=== PATIENT | female | born 1930 | race Caucasian/White ===

== ENCOUNTER 2021-08-18 15:26 | Observation (INO) ==
[2021-08-18 16:29] LABS: Basophils % 0.3 %; Eosinophils % 0.1 %; Hematocrit 39.4 % (35.3-44.9); Hemoglobin 12.2 g/dL (11.5-15.4); Immature Granulocytes % 0.6 % (0-4); Lymphocytes # 0.8 K/mcL (0.6-4.6); Lymphocytes % 5.7 %; Mean Corpuscular Hemoglobin 29.8 pg (28.0-33.3); Mean Corpuscular Volume 96.3 fL (83.0-100.0); Mean Platelet Volume 12.6 fL (9.4-12.4); Monocytes # 0.5 K/mcL (0.0-1.3); Monocytes % 3.6 %; Neutrophils # 13.2 K/mcL (1.6-8.9); Platelet Count 169 K/mcL (140-400); Red Blood Count 4.09 M/mcL (3.82-4.97); Red Cell Distribution Width 13.2 % (11.5-14.5); Segmented Neutrophils % 89.7 %; White Blood Count 14.7 K/mcL (4.3-11.1)
[2021-08-18 17:07] LABS: Bilirubin,Urine Negative (Negative); Blood,Urine Trace-intact (Negative); Clarity,Urine Slightly Cloudy (Clear); Glucose,Urine (UA) Normal (Normal); Ketones,Urine Negative (Negative); Leukocyte Esterase,Urine Small (Negative); Nitrite,Urine Negative (Negative); Protein,Urine Negative (Neg-Trace); Urobilinogen,Urine Normal (Normal)
[2021-08-18 17:14] LABS: Albumin 3.8 g/dL (3.5-5.7); Albumin/Globulin Ratio 1.1 (1.1-2.2); Bilirubin,Total 0.5 mg/dL (0.3-1.0); Calcium 8.7 mg/dL (8.6-10.3); Globulin 3.6 g/dL (2.4-3.5); Magnesium 2.1 mg/dL (1.6-2.6); Phosphorous 4.1 mg/dL (2.7-4.5); Total Protein 7.4 g/dL (6.4-8.9)
[2021-08-18 17:15] LABS: Color,Urine Light-Yellow (Yellow)
[2021-08-18 17:18] LABS: Bacteria,Urine Moderate per hpf (None-Few)
[2021-08-18] MEDS ORDERED: cefTRIAXone 1,000 MG in 0.9 % Sodium Chloride Mini Bag 100 ML IVPB ONE (17:22)
[2021-08-18 17:30] LABS: INR 3.7; Prothrombin Time 40.6 Seconds (9.4-12.1)
[2021-08-18] MEDS ORDERED: 0.9 % Sodium Chloride 1,000 ML IVC SCH ×2 (17:30→18:46)
[2021-08-18] MEDS ORDERED: Sennosides 8.6 MG TABLET PO PRN (18:46)
[2021-08-18] MEDS ORDERED: FOAM BANDAGE TP PRN (18:46)
[2021-08-18] MEDS ORDERED: Naloxone 0.4 MG/ML INJ IVP PRN (18:46)
[2021-08-18] MEDS ORDERED: atenoloL 25 MG TABLET PO SCH (21:00)
[2021-08-18] MEDS ORDERED: lisinopriL 20 MG TABLET PO SCH (21:00)
[2021-08-19 02:53] LABS: Basophils % 0.4 %; Eosinophils # 0.1 K/mcL (0.0-0.6); Eosinophils % 0.7 %; Hematocrit 32.5 % (35.3-44.9); Hemoglobin 10.2 g/dL (11.5-15.4); Immature Granulocytes % 0.2 % (0-4); Lymphocytes # 1.8 K/mcL (0.6-4.6); Lymphocytes % 21.6 %; Mean Corpuscular HGB Conc 31.4 g/dL (31.6-35.5); Mean Corpuscular Hemoglobin 29.7 pg (28.0-33.3); Mean Corpuscular Volume 94.5 fL (83.0-100.0); Monocytes # 0.8 K/mcL (0.0-1.3); Monocytes % 9.5 %; Neutrophils # 5.5 K/mcL (1.6-8.9); Platelet Count 156 K/mcL (140-400); Red Blood Count 3.44 M/mcL (3.82-4.97); Red Cell Distribution Width 13.2 % (11.5-14.5); Segmented Neutrophils % 67.6 %; White Blood Count 8.1 K/mcL (4.3-11.1)
[2021-08-19 03:31] LABS: Potassium 4.7 mEq/L (3.5-5.1)
[2021-08-19] MEDS ORDERED: *HR* Dextrose 50 % in Water (Syg) 50 ML SYRINGE IVP PRN (08:15)
[2021-08-19] MEDS ORDERED: Dextrose 4 GM Chewable Tablets PO PRN ×2 (08:15)
[2021-08-19] MEDS ORDERED: D5% in Water 1,000 ML IVC PRN (08:15)
[2021-08-19] MEDS: Multivit/Ca/Min/Fe/FA 1 TAB TABLET PO SCH (08:24)
[2021-08-19] MEDS: Cholecalciferol (D-3) 1,000 UNIT (25MCG) TABLET PO SCH (08:25)
[2021-08-19] MEDS ORDERED: GLIMEPIRIDE 1 MG PO SCH (09:00)
[2021-08-19] MEDS ORDERED: *HR* SitaGLIPtin 100 MG TABLET PO SCH (09:00)
[2021-08-19] MEDS ORDERED: amLODIPine 5 MG TABLET PO SCH (09:00)
[2021-08-19] MEDS: Insulin LISPRO 300 UNITS/3 ML VIAL SUBQ SCH ×2 (11:30→16:27)
[2021-08-19] MEDS: 0.9 % Sodium Chloride 1,000 ML IVC SCH (16:23)
[2021-08-20] MEDS: 0.9 % Sodium Chloride 1,000 ML IVC SCH ×2 (05:31→20:24)
[2021-08-20 07:30] LABS: Hemoglobin 9.7 g/dL (11.5-15.4); Mean Corpuscular HGB Conc 31.3 g/dL (31.6-35.5); Mean Corpuscular Hemoglobin 30.1 pg (28.0-33.3); Mean Corpuscular Volume 96.3 fL (83.0-100.0); Mean Platelet Volume 12.8 fL (9.4-12.4); Platelet Count 125 K/mcL (140-400); Red Blood Count 3.22 M/mcL (3.82-4.97); Red Cell Distribution Width 13.3 % (11.5-14.5); White Blood Count 5.4 K/mcL (4.3-11.1)
[2021-08-20] MEDS: Insulin LISPRO 300 UNITS/3 ML VIAL SUBQ SCH ×3 (07:42→17:32)
[2021-08-20 07:47] LABS: Potassium 4.4 mEq/L (3.5-5.1)
[2021-08-20] MEDS: Multivit/Ca/Min/Fe/FA 1 TAB TABLET PO SCH (09:23)
[2021-08-20] MEDS: Cholecalciferol (D-3) 1,000 UNIT (25MCG) TABLET PO SCH (09:24)
[2021-08-20] MEDS ORDERED: cefTRIAXone 2,000 MG in 0.9 % Sodium Chloride Mini Bag 100 ML IVPB SCH (10:20)
[2021-08-20] MEDS ORDERED: Aspirin Enteric Coated 81 MG Tablet PO SCH (17:53)
[2021-08-20] MEDS ORDERED: Albuterol 2.5 MG/3 ML NEBULIZER IH PRN (23:55)
[2021-08-21] MEDS ORDERED: Furosemide 40 MG/4 ML VIAL IVP ONE (00:15)
[2021-08-21] MEDS ORDERED: Nitroglycerin 1 INCH/GM PACKET TP ONE (02:14)
[2021-08-21 02:52] VITALS: BP 146/70; PULSE 76; TEMP 96.4
[2021-08-21] MEDS ORDERED: Azithromycin 500 MG in D5% in Water 250 ML IVPB SCH (03:00)
[2021-08-21 03:13] LABS: Hematocrit 38.1 % (35.3-44.9); Hemoglobin 11.9 g/dL (11.5-15.4); Mean Corpuscular HGB Conc 31.2 g/dL (31.6-35.5); Mean Corpuscular Hemoglobin 29.9 pg (28.0-33.3); Mean Corpuscular Volume 95.7 fL (83.0-100.0); Mean Platelet Volume 12.7 fL (9.4-12.4); Platelet Count 196 K/mcL (140-400); Red Blood Count 3.98 M/mcL (3.82-4.97); Red Cell Distribution Width 13.1 % (11.5-14.5); White Blood Count 14.1 K/mcL (4.3-11.1)
[2021-08-21 03:35] LABS: Calcium 8.5 mg/dL (8.6-10.3); Potassium 4.2 mEq/L (3.5-5.1)
[2021-08-21 03:50] VITALS: RESP 28; O2SAT 65
== END 2021-08-21 04:30 | disposition other institution (70) ==
LOC: INPPIK 15:26 → EMEROOPIK 15:26 → SUATTDRO 17:48 → INPPIK 18:17
PROVIDERS: ADMIT Internal Medicine; ATTEND Family Medicine

== ENCOUNTER 2021-09-26 22:35 | Inpatient (IN) ==
[2021-09-27] MEDS ORDERED: Ondansetron 4 MG/2 ML VIAL IVP PRN (02:39)
[2021-09-27] MEDS ORDERED: Naloxone 0.4 MG/ML INJ IVP PRN (02:39)
[2021-09-27 03:40] LABS: Bilirubin,Urine Negative (Negative); Blood,Urine Negative (Negative); Clarity,Urine Clear (Clear); Color,Urine Yellow (Yellow); Glucose,Urine (UA) Normal (Normal); Ketones,Urine 15 mg/dL (Negative); Leukocyte Esterase,Urine Trace (Negative); Nitrite,Urine Negative (Negative); PH,Urine 6.5 pH Units (5.0-8.0); Protein,Urine Trace mg/dL (Neg-Trace); Specific Gravity,Urine 1.015 (1.010-1.025); Urobilinogen,Urine Normal (Normal)
[2021-09-27 03:51] LABS: Squamous Epithelial Cell,Urine Few per hpf (None-Few)
[2021-09-27] MEDS: Acetaminophen 325 MG TABLET PO PRN (06:05)
[2021-09-27 07:22] LABS: Basophils # 0.1 K/mcL (0.0-0.2); Basophils % 0.9 %; Eosinophils # 0.2 K/mcL (0.0-0.6); Eosinophils % 3.4 %; Hematocrit 32.9 % (35.3-44.9); Hemoglobin 10.1 g/dL (11.5-15.4); Immature Granulocytes % 0.2 % (0-4); Lymphocytes # 1.7 K/mcL (0.6-4.6); Lymphocytes % 32.1 %; Mean Corpuscular HGB Conc 30.7 g/dL (31.6-35.5); Mean Corpuscular Hemoglobin 28.8 pg (28.0-33.3); Mean Corpuscular Volume 93.7 fL (83.0-100.0); Mean Platelet Volume 11.9 fL (9.4-12.4); Monocytes # 0.6 K/mcL (0.0-1.3); Monocytes % 10.5 %; Neutrophils # 2.8 K/mcL (1.6-8.9); Platelet Count 143 K/mcL (140-400); Red Blood Count 3.51 M/mcL (3.82-4.97); Red Cell Distribution Width 13.7 % (11.5-14.5); Segmented Neutrophils % 52.9 %; White Blood Count 5.3 K/mcL (4.3-11.1)
[2021-09-27 07:32] LABS: INR 1.1; Prothrombin Time 12.6 Seconds (9.4-12.1)
[2021-09-27 08:18] LABS: Calcium 8.2 mg/dL (8.6-10.3); Potassium 3.7 mEq/L (3.5-5.1); Troponin I 0.05 ng/mL (< 0.04)
[2021-09-27] MEDS ORDERED: *HR* SitaGLIPtin 100 MG TABLET PO SCH (09:00)
[2021-09-27] MEDS ORDERED: Furosemide 20 MG TABLET PO SCH (09:00)
[2021-09-27] MEDS ORDERED: D5% in Water 1,000 ML IVC PRN (10:10)
[2021-09-27] MEDS ORDERED: *HR* Dextrose 50 % in Water (Syg) 50 ML SYRINGE IVP PRN (10:10)
[2021-09-27] MEDS ORDERED: Dextrose 4 GM Chewable Tablets PO PRN ×2 (10:10)
[2021-09-27] MEDS ORDERED: Furosemide 20 MG/2 ML VIAL IVP SCH (10:15)
[2021-09-27] MEDS: *HR* Amiodarone 200 MG TABLET PO SCH (11:40)
[2021-09-27] MEDS: Aspirin Enteric Coated 81 MG Tablet PO SCH (11:40)
[2021-09-27] MEDS: Multivit/Ca/Min/Fe/FA 1 TAB TABLET PO SCH (11:40)
[2021-09-27] MEDS: *HR* Glimepiride 2 MG TABLET PO SCH (11:41)
[2021-09-27] MEDS: Cholecalciferol (D-3) 1,000 UNIT (25MCG) TABLET PO SCH (11:42)
[2021-09-27] MEDS: lisinopriL 5 MG TABLET PO SCH (11:46)
[2021-09-27] MEDS: polyethylene glycoL 3350 17 GM POWD.PACK PO PRN (11:47)
[2021-09-27] MEDS: *HR* SitaGLIPtin 25 MG TABLET PO SCH (11:54)
[2021-09-27] MEDS: Insulin LISPRO 300 UNITS/3 ML VIAL SUBQ SCH ×3 (11:59→21:46)
[2021-09-27] MEDS ORDERED: Warfarin perPT PO PRN (18:00)
[2021-09-27] MEDS ORDERED: *HR* Warfarin 2.5 MG TABLET PO ONE (18:00)
[2021-09-27] MEDS: Melatonin 3 MG TABLET PO SCH (21:55)
[2021-09-27] MEDS ORDERED: Furosemide 40 MG/4 ML VIAL IVP ONE (22:22)
[2021-09-27] MEDS ORDERED: Furosemide 40 MG TABLET PO ONE (22:25)
[2021-09-28 07:51] LABS: Basophils % 0.8 %; Eosinophils # 0.2 K/mcL (0.0-0.6); Hematocrit 33.7 % (35.3-44.9); Hemoglobin 10.2 g/dL (11.5-15.4); Immature Granulocytes % 0.2 % (0-4); Lymphocytes # 1.4 K/mcL (0.6-4.6); Lymphocytes % 27.6 %; Mean Corpuscular HGB Conc 30.3 g/dL (31.6-35.5); Mean Corpuscular Hemoglobin 28.3 pg (28.0-33.3); Mean Corpuscular Volume 93.6 fL (83.0-100.0); Mean Platelet Volume 12.3 fL (9.4-12.4); Monocytes # 0.5 K/mcL (0.0-1.3); Monocytes % 8.6 %; Neutrophils # 3.1 K/mcL (1.6-8.9); Platelet Count 144 K/mcL (140-400); Red Cell Distribution Width 13.6 % (11.5-14.5); Segmented Neutrophils % 58.8 %; White Blood Count 5.2 K/mcL (4.3-11.1)
[2021-09-28 08:01] LABS: INR 1.1; Prothrombin Time 12.3 Seconds (9.4-12.1)
[2021-09-28 08:15] LABS: Calcium 8.1 mg/dL (8.6-10.3); Magnesium 2.1 mg/dL (1.6-2.6); Potassium 4.3 mEq/L (3.5-5.1)
[2021-09-28] MEDS: lisinopriL 5 MG TABLET PO SCH (08:57)
[2021-09-28] MEDS: *HR* Glimepiride 2 MG TABLET PO SCH (08:58)
[2021-09-28] MEDS: Aspirin Enteric Coated 81 MG Tablet PO SCH (08:58)
[2021-09-28] MEDS: Acetaminophen 325 MG TABLET PO PRN (08:58)
[2021-09-28] MEDS: *HR* SitaGLIPtin 25 MG TABLET PO SCH (08:58)
[2021-09-28] MEDS: *HR* Amiodarone 200 MG TABLET PO SCH (08:59)
[2021-09-28] MEDS: Multivit/Ca/Min/Fe/FA 1 TAB TABLET PO SCH (08:59)
[2021-09-28] MEDS: Insulin LISPRO 300 UNITS/3 ML VIAL SUBQ SCH ×2 (08:59→21:06)
[2021-09-28] MEDS: Cholecalciferol (D-3) 1,000 UNIT (25MCG) TABLET PO SCH (08:59)
[2021-09-28] MEDS ORDERED: Furosemide 40 MG TABLET PO SCH (09:00)
[2021-09-28] MEDS ORDERED: *HR* Warfarin 3 MG TABLET PO ONE (18:29)
[2021-09-28] MEDS: Melatonin 3 MG TABLET PO SCH (21:01)
[2021-09-29 07:43] LABS: Basophils # 0.1 K/mcL (0.0-0.2); Basophils % 0.8 %; Eosinophils # 0.2 K/mcL (0.0-0.6); Eosinophils % 3.7 %; Hematocrit 34.7 % (35.3-44.9); Hemoglobin 10.6 g/dL (11.5-15.4); Immature Granulocytes % 0.3 % (0-4); Lymphocytes # 1.9 K/mcL (0.6-4.6); Lymphocytes % 31.1 %; Mean Corpuscular HGB Conc 30.5 g/dL (31.6-35.5); Mean Corpuscular Volume 94.8 fL (83.0-100.0); Mean Platelet Volume 12.4 fL (9.4-12.4); Monocytes # 0.6 K/mcL (0.0-1.3); Monocytes % 9.9 %; Neutrophils # 3.3 K/mcL (1.6-8.9); Platelet Count 148 K/mcL (140-400); Red Blood Count 3.66 M/mcL (3.82-4.97); Red Cell Distribution Width 13.8 % (11.5-14.5); Segmented Neutrophils % 54.2 %; White Blood Count 6.2 K/mcL (4.3-11.1)
[2021-09-29 07:48] LABS: INR 1.1; Prothrombin Time 12.5 Seconds (9.4-12.1)
[2021-09-29 08:01] LABS: Calcium 8.4 mg/dL (8.6-10.3); Potassium 4.7 mEq/L (3.5-5.1)
[2021-09-29] MEDS: Furosemide 40 MG TABLET PO SCH ×2 (08:13→08:15)
[2021-09-29] MEDS: Insulin LISPRO 300 UNITS/3 ML VIAL SUBQ SCH ×3 (08:13→14:05)
[2021-09-29] MEDS: lisinopriL 5 MG TABLET PO SCH (08:15)
[2021-09-29] MEDS: Aspirin Enteric Coated 81 MG Tablet PO SCH (08:15)
[2021-09-29] MEDS: Multivit/Ca/Min/Fe/FA 1 TAB TABLET PO SCH (08:15)
[2021-09-29] MEDS: *HR* SitaGLIPtin 25 MG TABLET PO SCH (08:15)
[2021-09-29] MEDS: Cholecalciferol (D-3) 1,000 UNIT (25MCG) TABLET PO SCH (08:16)
[2021-09-29] MEDS: *HR* Amiodarone 200 MG TABLET PO SCH (08:16)
[2021-09-29] MEDS: *HR* Glimepiride 2 MG TABLET PO SCH (08:16)
[2021-09-29] MEDS ORDERED: Perflutren Lipid Microsphere 1.3 ML in 0.9 % Sodium Chloride 8.7 ML IVP PRN (12:00)
[2021-09-29] MEDS ORDERED: *HR* Warfarin 3 MG TABLET PO ONE (18:00)
[2021-09-29] MEDS: Melatonin 3 MG TABLET PO SCH (20:11)
[2021-09-30 07:33] LABS: Basophils # 0.1 K/mcL (0.0-0.2); Basophils % 0.9 %; Eosinophils # 0.2 K/mcL (0.0-0.6); Eosinophils % 2.8 %; Hematocrit 31.2 % (35.3-44.9); Hemoglobin 9.4 g/dL (11.5-15.4); Immature Granulocytes % 0.6 % (0-4); Lymphocytes # 1.6 K/mcL (0.6-4.6); Mean Corpuscular HGB Conc 30.1 g/dL (31.6-35.5); Mean Corpuscular Hemoglobin 28.2 pg (28.0-33.3); Mean Corpuscular Volume 93.7 fL (83.0-100.0); Mean Platelet Volume 12.6 fL (9.4-12.4); Monocytes # 0.6 K/mcL (0.0-1.3); Monocytes % 10.8 %; Platelet Count 135 K/mcL (140-400); Red Blood Count 3.33 M/mcL (3.82-4.97); Red Cell Distribution Width 13.9 % (11.5-14.5); Segmented Neutrophils % 55.9 %; White Blood Count 5.4 K/mcL (4.3-11.1)
[2021-09-30 07:42] LABS: INR 1.3; Prothrombin Time 14.5 Seconds (9.4-12.1)
[2021-09-30 07:54] LABS: Calcium 7.9 mg/dL (8.6-10.3); Magnesium 2.1 mg/dL (1.6-2.6); Potassium 4.5 mEq/L (3.5-5.1)
[2021-09-30] MEDS: Multivit/Ca/Min/Fe/FA 1 TAB TABLET PO SCH (10:50)
[2021-09-30] MEDS: *HR* Amiodarone 200 MG TABLET PO SCH (10:50)
[2021-09-30] MEDS: Aspirin Enteric Coated 81 MG Tablet PO SCH (10:50)
[2021-09-30] MEDS: *HR* Glimepiride 2 MG TABLET PO SCH (10:51)
[2021-09-30] MEDS: *HR* SitaGLIPtin 25 MG TABLET PO SCH (10:51)
[2021-09-30] MEDS: lisinopriL 5 MG TABLET PO SCH (10:51)
[2021-09-30] MEDS: Cholecalciferol (D-3) 1,000 UNIT (25MCG) TABLET PO SCH (10:51)
[2021-09-30] MEDS ORDERED: *HR* Warfarin 3 MG TABLET PO ONE (18:00)
[2021-09-30] MEDS: Melatonin 3 MG TABLET PO SCH (20:18)
[2021-09-30] MEDS: polyethylene glycoL 3350 17 GM POWD.PACK PO PRN (23:01)
[2021-10-01 07:26] LABS: Basophils # 0.1 K/mcL (0.0-0.2); Basophils % 0.9 %; Eosinophils # 0.2 K/mcL (0.0-0.6); Eosinophils % 3.4 %; Hematocrit 33.5 % (35.3-44.9); Immature Granulocytes % 0.2 % (0-4); Lymphocytes # 1.6 K/mcL (0.6-4.6); Lymphocytes % 26.6 %; Mean Corpuscular HGB Conc 29.9 g/dL (31.6-35.5); Mean Corpuscular Hemoglobin 28.3 pg (28.0-33.3); Mean Corpuscular Volume 94.9 fL (83.0-100.0); Mean Platelet Volume 12.8 fL (9.4-12.4); Monocytes # 0.5 K/mcL (0.0-1.3); Monocytes % 9.2 %; Neutrophils # 3.5 K/mcL (1.6-8.9); Platelet Count 135 K/mcL (140-400); Red Blood Count 3.53 M/mcL (3.82-4.97); Segmented Neutrophils % 59.7 %; White Blood Count 5.9 K/mcL (4.3-11.1)
[2021-10-01 07:51] LABS: INR 1.3; Prothrombin Time 14.8 Seconds (9.4-12.1)
[2021-10-01 08:00] LABS: Calcium 8.3 mg/dL (8.6-10.3); Potassium 4.8 mEq/L (3.5-5.1)
[2021-10-01] MEDS: *HR* SitaGLIPtin 25 MG TABLET PO SCH (09:45)
[2021-10-01] MEDS: Aspirin Enteric Coated 81 MG Tablet PO SCH (09:46)
[2021-10-01] MEDS: Multivit/Ca/Min/Fe/FA 1 TAB TABLET PO SCH (09:47)
[2021-10-01] MEDS: *HR* Amiodarone 200 MG TABLET PO SCH (09:47)
[2021-10-01] MEDS: Cholecalciferol (D-3) 1,000 UNIT (25MCG) TABLET PO SCH (09:47)
[2021-10-01] MEDS: *HR* Glimepiride 2 MG TABLET PO SCH (09:48)
[2021-10-01] MEDS: lisinopriL 5 MG TABLET PO SCH (09:56)
[2021-10-01] MEDS: Furosemide 40 MG TABLET PO SCH (17:43)
[2021-10-01] MEDS ORDERED: *HR* Warfarin 2 MG TABLET PO ONE (18:00)
[2021-10-01] MEDS: Melatonin 3 MG TABLET PO SCH (23:31)
[2021-10-02 07:28] LABS: INR 1.5; Prothrombin Time 16.3 Seconds (9.4-12.1)
[2021-10-02 07:46] LABS: Hematocrit 31.9 % (35.3-44.9); Hemoglobin 9.8 g/dL (11.5-15.4); Mean Corpuscular HGB Conc 30.7 g/dL (31.6-35.5); Mean Corpuscular Hemoglobin 28.7 pg (28.0-33.3); Mean Corpuscular Volume 93.3 fL (83.0-100.0); Mean Platelet Volume 12.8 fL (9.4-12.4); Platelet Count 140 K/mcL (140-400); Red Blood Count 3.42 M/mcL (3.82-4.97); Red Cell Distribution Width 13.9 % (11.5-14.5); White Blood Count 5.5 K/mcL (4.3-11.1)
[2021-10-02 07:55] LABS: Potassium 4.3 mEq/L (3.5-5.1)
[2021-10-02] MEDS: *HR* Glimepiride 2 MG TABLET PO SCH (10:15)
[2021-10-02] MEDS: Multivit/Ca/Min/Fe/FA 1 TAB TABLET PO SCH (10:15)
[2021-10-02] MEDS: lisinopriL 5 MG TABLET PO SCH (10:16)
[2021-10-02] MEDS: *HR* Amiodarone 200 MG TABLET PO SCH (10:16)
[2021-10-02] MEDS: *HR* SitaGLIPtin 25 MG TABLET PO SCH (10:16)
[2021-10-02] MEDS: Aspirin Enteric Coated 81 MG Tablet PO SCH (10:16)
[2021-10-02] MEDS: Furosemide 40 MG TABLET PO SCH ×2 (10:16→17:53)
[2021-10-02] MEDS: Cholecalciferol (D-3) 1,000 UNIT (25MCG) TABLET PO SCH (10:17)
[2021-10-02] MEDS ORDERED: *HR* Warfarin 2 MG TABLET PO ONE (18:00)
[2021-10-02] MEDS: Melatonin 3 MG TABLET PO SCH (21:13)
[2021-10-03 07:05] LABS: INR 1.6; Prothrombin Time 17.9 Seconds (9.4-12.1)
[2021-10-03] MEDS: *HR* Amiodarone 200 MG TABLET PO SCH (09:38)
[2021-10-03] MEDS: Aspirin Enteric Coated 81 MG Tablet PO SCH (09:38)
[2021-10-03] MEDS: Cholecalciferol (D-3) 1,000 UNIT (25MCG) TABLET PO SCH (09:39)
[2021-10-03] MEDS: Multivit/Ca/Min/Fe/FA 1 TAB TABLET PO SCH (09:40)
[2021-10-03] MEDS: *HR* Glimepiride 2 MG TABLET PO SCH (09:40)
[2021-10-03] MEDS: *HR* SitaGLIPtin 25 MG TABLET PO SCH (09:41)
[2021-10-03] MEDS: Furosemide 40 MG TABLET PO SCH ×2 (09:42→17:26)
[2021-10-03] MEDS: lisinopriL 5 MG TABLET PO SCH (09:45)
[2021-10-03] MEDS ORDERED: *HR* Warfarin 0.5 MG TABLET PO ONE (18:00)
[2021-10-03] MEDS ORDERED: *HR* Warfarin 2 MG TABLET PO ONE (18:00)
[2021-10-03] MEDS: Melatonin 3 MG TABLET PO SCH (22:10)
[2021-10-04 05:39] LABS: INR 1.9; Prothrombin Time 21.4 Seconds (9.4-12.1)
[2021-10-04] MEDS: Furosemide 40 MG TABLET PO SCH ×2 (09:23→16:20)
[2021-10-04] MEDS: lisinopriL 5 MG TABLET PO SCH (09:23)
[2021-10-04] MEDS: *HR* Amiodarone 200 MG TABLET PO SCH (09:24)
[2021-10-04] MEDS: *HR* SitaGLIPtin 25 MG TABLET PO SCH (09:24)
[2021-10-04] MEDS: Multivit/Ca/Min/Fe/FA 1 TAB TABLET PO SCH (09:25)
[2021-10-04] MEDS: *HR* Glimepiride 2 MG TABLET PO SCH (09:25)
[2021-10-04] MEDS: Aspirin Enteric Coated 81 MG Tablet PO SCH (09:25)
[2021-10-04] MEDS: Cholecalciferol (D-3) 1,000 UNIT (25MCG) TABLET PO SCH (09:25)
[2021-10-04] MEDS ORDERED: *HR* Warfarin 2 MG TABLET PO ONE (18:00)
[2021-10-04] MEDS: Melatonin 3 MG TABLET PO SCH (20:08)
[2021-10-05 07:42] LABS: Basophils % 0.7 %; Eosinophils # 0.2 K/mcL (0.0-0.6); Eosinophils % 3.2 %; Hematocrit 33.9 % (35.3-44.9); Hemoglobin 10.5 g/dL (11.5-15.4); Immature Granulocytes % 0.2 % (0-4); Lymphocytes # 1.9 K/mcL (0.6-4.6); Mean Corpuscular Hemoglobin 28.8 pg (28.0-33.3); Mean Corpuscular Volume 92.9 fL (83.0-100.0); Mean Platelet Volume 12.3 fL (9.4-12.4); Monocytes # 0.5 K/mcL (0.0-1.3); Monocytes % 9.9 %; Neutrophils # 2.7 K/mcL (1.6-8.9); Platelet Count 149 K/mcL (140-400); Red Blood Count 3.65 M/mcL (3.82-4.97); Red Cell Distribution Width 13.9 % (11.5-14.5); White Blood Count 5.3 K/mcL (4.3-11.1)
[2021-10-05 07:47] LABS: INR 2.1
[2021-10-05 07:57] LABS: Calcium 8.3 mg/dL (8.6-10.3); Potassium 3.9 mEq/L (3.5-5.1)
[2021-10-05] MEDS: Cholecalciferol (D-3) 1,000 UNIT (25MCG) TABLET PO SCH (08:42)
[2021-10-05] MEDS: lisinopriL 5 MG TABLET PO SCH (08:42)
[2021-10-05] MEDS: *HR* Amiodarone 200 MG TABLET PO SCH (08:42)
[2021-10-05] MEDS: polyethylene glycoL 3350 17 GM POWD.PACK PO PRN (08:42)
[2021-10-05] MEDS: Multivit/Ca/Min/Fe/FA 1 TAB TABLET PO SCH (08:42)
[2021-10-05] MEDS: Furosemide 40 MG TABLET PO SCH ×2 (08:42→17:12)
[2021-10-05] MEDS: *HR* Glimepiride 2 MG TABLET PO SCH (08:43)
[2021-10-05] MEDS: *HR* SitaGLIPtin 25 MG TABLET PO SCH (08:43)
[2021-10-05] MEDS: Aspirin Enteric Coated 81 MG Tablet PO SCH (08:43)
[2021-10-05] MEDS ORDERED: *HR* Warfarin 3 MG TABLET PO ONE (18:00)
[2021-10-05] MEDS: Melatonin 3 MG TABLET PO SCH (21:03)
[2021-10-06 07:44] LABS: INR 2.3; Prothrombin Time 25.2 Seconds (9.4-12.1)
[2021-10-06] MEDS: *HR* SitaGLIPtin 25 MG TABLET PO SCH (09:52)
[2021-10-06] MEDS: Furosemide 40 MG TABLET PO SCH ×2 (09:52→17:10)
[2021-10-06] MEDS: Cholecalciferol (D-3) 1,000 UNIT (25MCG) TABLET PO SCH (09:53)
[2021-10-06] MEDS: Aspirin Enteric Coated 81 MG Tablet PO SCH (09:53)
[2021-10-06] MEDS: lisinopriL 5 MG TABLET PO SCH (09:53)
[2021-10-06] MEDS: *HR* Amiodarone 200 MG TABLET PO SCH (09:54)
[2021-10-06] MEDS: Multivit/Ca/Min/Fe/FA 1 TAB TABLET PO SCH (09:55)
[2021-10-06] MEDS: *HR* Glimepiride 2 MG TABLET PO SCH (09:56)
[2021-10-06] MEDS ORDERED: *HR* Warfarin 2 MG TABLET PO ONE (18:00)
[2021-10-06] MEDS: Melatonin 3 MG TABLET PO SCH (20:05)
[2021-10-07 07:45] LABS: Hematocrit 33.3 % (35.3-44.9); Hemoglobin 10.2 g/dL (11.5-15.4); Mean Corpuscular HGB Conc 30.6 g/dL (31.6-35.5); Mean Corpuscular Hemoglobin 28.3 pg (28.0-33.3); Mean Corpuscular Volume 92.2 fL (83.0-100.0); Mean Platelet Volume 12.3 fL (9.4-12.4); Platelet Count 142 K/mcL (140-400); Red Blood Count 3.61 M/mcL (3.82-4.97); Red Cell Distribution Width 13.9 % (11.5-14.5); White Blood Count 5.8 K/mcL (4.3-11.1)
[2021-10-07 07:52] LABS: INR 2.1; Prothrombin Time 23.8 Seconds (9.4-12.1)
[2021-10-07] MEDS: lisinopriL 5 MG TABLET PO SCH (09:01)
[2021-10-07] MEDS: *HR* Amiodarone 200 MG TABLET PO SCH (09:01)
[2021-10-07] MEDS: Furosemide 40 MG TABLET PO SCH ×2 (09:01→17:17)
[2021-10-07] MEDS: *HR* SitaGLIPtin 25 MG TABLET PO SCH (09:01)
[2021-10-07] MEDS: Cholecalciferol (D-3) 1,000 UNIT (25MCG) TABLET PO SCH (09:01)
[2021-10-07] MEDS: Multivit/Ca/Min/Fe/FA 1 TAB TABLET PO SCH (09:01)
[2021-10-07] MEDS: Aspirin Enteric Coated 81 MG Tablet PO SCH (09:01)
[2021-10-07] MEDS: *HR* Glimepiride 2 MG TABLET PO SCH (09:02)
[2021-10-07 09:09] LABS: Potassium 3.9 mEq/L (3.5-5.1)
[2021-10-07] MEDS ORDERED: *HR* Warfarin 3 MG TABLET PO ONE (18:00)
[2021-10-07] MEDS: Melatonin 3 MG TABLET PO SCH (21:07)
[2021-10-08 07:58] LABS: Prothrombin Time 21.9 Seconds (9.4-12.1)
[2021-10-08] MEDS: Cholecalciferol (D-3) 1,000 UNIT (25MCG) TABLET PO SCH (08:32)
[2021-10-08] MEDS: *HR* Amiodarone 200 MG TABLET PO SCH (08:34)
[2021-10-08] MEDS: Furosemide 40 MG TABLET PO SCH ×2 (08:34→17:53)
[2021-10-08] MEDS: lisinopriL 5 MG TABLET PO SCH (08:35)
[2021-10-08] MEDS: Aspirin Enteric Coated 81 MG Tablet PO SCH (08:35)
[2021-10-08] MEDS: Multivit/Ca/Min/Fe/FA 1 TAB TABLET PO SCH (08:37)
[2021-10-08] MEDS: *HR* SitaGLIPtin 25 MG TABLET PO SCH (08:38)
[2021-10-08] MEDS: *HR* Glimepiride 2 MG TABLET PO SCH (08:38)
[2021-10-08] MEDS ORDERED: *HR* Warfarin 2 MG TABLET PO ONE (18:00)
[2021-10-08 19:42] VITALS: BP 118/72; PULSE 62; RESP 12; TEMP 97.5; O2SAT 96
== END 2021-10-08 18:45 | DRG 291 ==
LOC: INPPIK → SUATTDRO 09-29 15:32 → INPPIK 10-02 22:53
PROVIDERS: ADMIT Student in an Organized Health Care Education/Training Program; ATTEND Family Medicine

== ENCOUNTER 2021-12-04 15:42 | Observation (INO) ==
[2021-12-04 16:45] LABS: Basophils % 0.6 %; Eosinophils # 0.1 K/mcL (0.0-0.6); Eosinophils % 2.1 %; Hematocrit 36.1 % (35.3-44.9); Hemoglobin 11.3 g/dL (11.5-15.4); Immature Granulocytes % 0.3 % (0-4); Lymphocytes # 1.3 K/mcL (0.6-4.6); Lymphocytes % 19.3 %; Mean Corpuscular HGB Conc 31.3 g/dL (31.6-35.5); Mean Corpuscular Hemoglobin 28.3 pg (28.0-33.3); Mean Corpuscular Volume 90.5 fL (83.0-100.0); Mean Platelet Volume 12.6 fL (9.4-12.4); Monocytes # 0.7 K/mcL (0.0-1.3); Monocytes % 9.7 %; Neutrophils # 4.6 K/mcL (1.6-8.9); Platelet Count 146 K/mcL (140-400); Red Blood Count 3.99 M/mcL (3.82-4.97); Red Cell Distribution Width 15.4 % (11.5-14.5); White Blood Count 6.8 K/mcL (4.3-11.1)
[2021-12-04 16:53] LABS: INR 1.5; Prothrombin Time 16.3 Seconds (9.4-12.1)
[2021-12-04 16:58] LABS: Bilirubin,Urine Negative (Negative); Blood,Urine Trace-intact (Negative); Clarity,Urine Clear (Clear); Color,Urine Yellow (Yellow); Glucose,Urine (UA) Normal (Normal); Ketones,Urine Negative (Negative); Leukocyte Esterase,Urine Moderate (Negative); Nitrite,Urine Negative (Negative); Protein,Urine Negative (Neg-Trace); Specific Gravity,Urine 1.015 (1.010-1.025); Urobilinogen,Urine Normal (Normal)
[2021-12-04 17:04] LABS: Albumin 3.7 g/dL (3.5-5.7); Albumin/Globulin Ratio 1.1 (1.1-2.2); Bilirubin,Total 0.7 mg/dL (0.3-1.0); Calcium 8.7 mg/dL (8.6-10.3); Globulin 3.3 g/dL (2.4-3.5); Potassium 4.1 mEq/L (3.5-5.1)
[2021-12-04 17:05] LABS: Bacteria,Urine Many per hpf (None-Few); Squamous Epithelial Cell,Urine Few per hpf (None-Few)
[2021-12-04] MEDS ORDERED: 0.9 % Sodium Chloride 1,000 ML IV ONE (18:29)
[2021-12-04] MEDS ORDERED: cefTRIAXone 1,000 MG in 0.9 % Sodium Chloride Mini Bag 100 ML IVPB ONE (18:29)
[2021-12-04] MEDS ORDERED: Naloxone 0.4 MG/ML INJ IVP PRN (23:58)
[2021-12-04] MEDS ORDERED: polyethylene glycoL 3350 17 GM POWD.PACK PO PRN (23:58)
[2021-12-05 00:45] LABS: Basophils % 0.6 %; Eosinophils # 0.1 K/mcL (0.0-0.6); Eosinophils % 1.8 %; Hematocrit 38.9 % (35.3-44.9); Hemoglobin 11.8 g/dL (11.5-15.4); Immature Granulocytes % 0.1 % (0-4); Lymphocytes # 1.1 K/mcL (0.6-4.6); Lymphocytes % 16.9 %; Mean Corpuscular HGB Conc 30.3 g/dL (31.6-35.5); Mean Corpuscular Hemoglobin 27.5 pg (28.0-33.3); Mean Corpuscular Volume 90.7 fL (83.0-100.0); Mean Platelet Volume 12.8 fL (9.4-12.4); Monocytes # 0.6 K/mcL (0.0-1.3); Monocytes % 8.1 %; Neutrophils # 4.9 K/mcL (1.6-8.9); Platelet Count 142 K/mcL (140-400); Red Blood Count 4.29 M/mcL (3.82-4.97); Red Cell Distribution Width 15.6 % (11.5-14.5); Segmented Neutrophils % 72.5 %; White Blood Count 6.8 K/mcL (4.3-11.1)
[2021-12-05 01:05] LABS: Calcium 8.5 mg/dL (8.6-10.3); Potassium 4.3 mEq/L (3.5-5.1)
[2021-12-05] MEDS: Aspirin Enteric Coated 81 MG Tablet PO SCH (08:29)
[2021-12-05] MEDS: carvediloL 6.25 MG TABLET PO SCH ×2 (08:29→16:18)
[2021-12-05] MEDS: Multivit/Ca/Min/Fe/FA 1 TAB TABLET PO SCH (08:30)
[2021-12-05] MEDS: Ascorbic Acid 500 MG TABLET PO SCH (08:30)
[2021-12-05] MEDS: lisinopriL 5 MG TABLET PO SCH (08:30)
[2021-12-05] MEDS: Cholecalciferol (D-3) 1,000 UNIT (25MCG) TABLET PO SCH (08:30)
[2021-12-05] MEDS: *HR* Glimepiride 2 MG TABLET PO SCH (08:31)
[2021-12-05] MEDS: Furosemide 20 MG TABLET PO SCH ×2 (08:31→20:44)
[2021-12-05] MEDS: Apixaban 2.5 MG TABLET PO SCH ×2 (08:31→20:43)
[2021-12-05] MEDS: *HR* Amiodarone 200 MG TABLET PO SCH ×2 (08:31→20:44)
[2021-12-05] MEDS: (Fish Oil 1,000 Mg Softgel) PO SCH (08:31)
[2021-12-05] MEDS ORDERED: AMIODARONE 200 MG PO SCH (09:00)
[2021-12-05] MEDS ORDERED: MEMANTINE HCL 5 MG PO SCH (09:00)
[2021-12-05] MEDS: Cefdinir 300 MG CAPSULE PO SCH (20:43)
[2021-12-05] MEDS: Melatonin 3 MG TABLET PO SCH (20:43)
[2021-12-06 07:44] LABS: Basophils % 0.5 %; Eosinophils # 0.1 K/mcL (0.0-0.6); Hematocrit 34.5 % (35.3-44.9); Hemoglobin 10.7 g/dL (11.5-15.4); Immature Granulocytes % 0.3 % (0-4); Lymphocytes # 1.5 K/mcL (0.6-4.6); Lymphocytes % 25.9 %; Mean Corpuscular Hemoglobin 28.3 pg (28.0-33.3); Mean Corpuscular Volume 91.3 fL (83.0-100.0); Mean Platelet Volume 13.5 fL (9.4-12.4); Monocytes # 0.5 K/mcL (0.0-1.3); Monocytes % 8.8 %; Neutrophils # 3.7 K/mcL (1.6-8.9); Platelet Count 132 K/mcL (140-400); Red Blood Count 3.78 M/mcL (3.82-4.97); Red Cell Distribution Width 15.7 % (11.5-14.5); Segmented Neutrophils % 62.5 %; White Blood Count 5.9 K/mcL (4.3-11.1)
[2021-12-06 07:52] LABS: Calcium 8.2 mg/dL (8.6-10.3); Potassium 4.4 mEq/L (3.5-5.1)
[2021-12-06] MEDS: Cholecalciferol (D-3) 1,000 UNIT (25MCG) TABLET PO SCH (09:55)
[2021-12-06] MEDS: Ascorbic Acid 500 MG TABLET PO SCH (09:55)
[2021-12-06] MEDS: lisinopriL 5 MG TABLET PO SCH (09:55)
[2021-12-06] MEDS: Aspirin Enteric Coated 81 MG Tablet PO SCH (09:55)
[2021-12-06] MEDS: *HR* Glimepiride 2 MG TABLET PO SCH (09:56)
[2021-12-06] MEDS: Apixaban 2.5 MG TABLET PO SCH ×2 (09:56→21:57)
[2021-12-06] MEDS: *HR* Amiodarone 200 MG TABLET PO SCH ×2 (09:56→21:57)
[2021-12-06] MEDS: Furosemide 20 MG TABLET PO SCH ×2 (09:56→21:57)
[2021-12-06] MEDS: Multivit/Ca/Min/Fe/FA 1 TAB TABLET PO SCH (09:56)
[2021-12-06] MEDS: (Fish Oil 1,000 Mg Softgel) PO SCH (09:57)
[2021-12-06] MEDS: Cefdinir 300 MG CAPSULE PO SCH ×2 (09:59→10:48)
[2021-12-06] MEDS: Melatonin 3 MG TABLET PO SCH (21:57)
[2021-12-06] MEDS: Sennosides/Docusate Sodium TABLET PO PRN (21:57)
[2021-12-07] MEDS: carvediloL 6.25 MG TABLET PO SCH ×2 (08:15→16:08)
[2021-12-07] MEDS: Ascorbic Acid 500 MG TABLET PO SCH (08:20)
[2021-12-07] MEDS: *HR* Glimepiride 2 MG TABLET PO SCH (08:20)
[2021-12-07] MEDS: lisinopriL 5 MG TABLET PO SCH (08:21)
[2021-12-07] MEDS: Multivit/Ca/Min/Fe/FA 1 TAB TABLET PO SCH (08:21)
[2021-12-07] MEDS: Furosemide 20 MG TABLET PO SCH ×2 (08:21→23:52)
[2021-12-07] MEDS: Apixaban 2.5 MG TABLET PO SCH ×2 (08:21→23:51)
[2021-12-07] MEDS: *HR* Amiodarone 200 MG TABLET PO SCH ×2 (08:21→23:51)
[2021-12-07] MEDS: Cefdinir 300 MG CAPSULE PO SCH (08:21)
[2021-12-07] MEDS: Cholecalciferol (D-3) 1,000 UNIT (25MCG) TABLET PO SCH (08:21)
[2021-12-07] MEDS: Aspirin Enteric Coated 81 MG Tablet PO SCH (08:21)
[2021-12-07] MEDS: (Fish Oil 1,000 Mg Softgel) PO SCH (08:22)
[2021-12-07 08:48] LABS: Basophils % 0.6 %; Eosinophils # 0.1 K/mcL (0.0-0.6); Eosinophils % 1.8 %; Hematocrit 38.2 % (35.3-44.9); Hemoglobin 11.7 g/dL (11.5-15.4); Immature Granulocytes % 0.3 % (0-4); Lymphocytes # 1.5 K/mcL (0.6-4.6); Lymphocytes % 22.6 %; Mean Corpuscular HGB Conc 30.6 g/dL (31.6-35.5); Mean Corpuscular Hemoglobin 28.1 pg (28.0-33.3); Mean Corpuscular Volume 91.8 fL (83.0-100.0); Monocytes # 0.5 K/mcL (0.0-1.3); Monocytes % 7.3 %; Neutrophils # 4.4 K/mcL (1.6-8.9); Platelet Count 133 K/mcL (140-400); Red Blood Count 4.16 M/mcL (3.82-4.97); Red Cell Distribution Width 15.7 % (11.5-14.5); Segmented Neutrophils % 67.4 %; White Blood Count 6.6 K/mcL (4.3-11.1)
[2021-12-07 10:12] LABS: Thyroid Stimulating Hormone 2.861 mcIU/mL (0.340-5.600)
[2021-12-07 11:16] LABS: Calcium 8.5 mg/dL (8.6-10.3); Potassium 4.2 mEq/L (3.5-5.1)
[2021-12-07] MEDS: Sennosides/Docusate Sodium TABLET PO PRN (23:51)
[2021-12-07] MEDS: Melatonin 3 MG TABLET PO SCH (23:52)
[2021-12-08 08:18] LABS: Calcium 8.2 mg/dL (8.6-10.3); Magnesium 1.9 mg/dL (1.6-2.6); Potassium 4.6 mEq/L (3.5-5.1)
[2021-12-08] MEDS: *HR* Glimepiride 2 MG TABLET PO SCH (08:41)
[2021-12-08] MEDS: lisinopriL 5 MG TABLET PO SCH (08:41)
[2021-12-08] MEDS: Aspirin Enteric Coated 81 MG Tablet PO SCH (08:42)
[2021-12-08] MEDS: Ascorbic Acid 500 MG TABLET PO SCH (08:42)
[2021-12-08] MEDS: Furosemide 20 MG TABLET PO SCH (08:42)
[2021-12-08] MEDS: Apixaban 2.5 MG TABLET PO SCH (08:42)
[2021-12-08] MEDS: Multivit/Ca/Min/Fe/FA 1 TAB TABLET PO SCH (08:42)
[2021-12-08] MEDS: Cholecalciferol (D-3) 1,000 UNIT (25MCG) TABLET PO SCH (08:42)
[2021-12-08] MEDS: (Fish Oil 1,000 Mg Softgel) PO SCH (08:43)
[2021-12-08] MEDS: carvediloL 6.25 MG TABLET PO SCH (08:43)
[2021-12-08] MEDS: *HR* Amiodarone 200 MG TABLET PO SCH (08:43)
[2021-12-08] MEDS ORDERED: Cefdinir 300 MG CAPSULE PO SCH (09:00)
[2021-12-08 11:23] VITALS: BP 112/47; PULSE 58; RESP 17; TEMP 97.5; O2SAT 97
== END 2021-12-08 15:46 ==
LOC: INPPIK 15:42 → EMEROOPIK 15:42 → INPPIK 23:30
PROVIDERS: ADMIT Internal Medicine; ATTEND Internal Medicine

== ENCOUNTER 2021-12-07 08:23 | Inpatient (IN) ==
[2021-12-08 07:59] LABS: Basophils % 0.7 %; Eosinophils # 0.1 K/mcL (0.0-0.6); Hematocrit 34.6 % (35.3-44.9); Hemoglobin 10.8 g/dL (11.5-15.4); Immature Granulocytes % 0.3 % (0-4); Lymphocytes # 1.4 K/mcL (0.6-4.6); Lymphocytes % 23.1 %; Mean Corpuscular HGB Conc 31.2 g/dL (31.6-35.5); Mean Corpuscular Hemoglobin 28.4 pg (28.0-33.3); Mean Corpuscular Volume 91.1 fL (83.0-100.0); Mean Platelet Volume 12.8 fL (9.4-12.4); Monocytes # 0.5 K/mcL (0.0-1.3); Monocytes % 7.8 %; Neutrophils # 3.9 K/mcL (1.6-8.9); Platelet Count 126 K/mcL (140-400); Red Cell Distribution Width 15.7 % (11.5-14.5); Segmented Neutrophils % 66.1 %; White Blood Count 5.9 K/mcL (4.3-11.1)
[2021-12-08] MEDS ORDERED: NON-FORMULARY MEDICATION 1 EACH EACH (Omega-3/Dha/Epa/Fish Oil [Fish Oil 1,000 Mg Softgel] PO SCH (09:00)
[2021-12-08] MEDS ORDERED: AMIODARONE 200 MG PO SCH (09:00)
[2021-12-08] MEDS ORDERED: MEMANTINE HCL 5 MG PO SCH (09:00)
[2021-12-08] MEDS: Apixaban 2.5 MG TABLET PO SCH ×3 (17:19→21:56)
[2021-12-08] MEDS: carvediloL 6.25 MG TABLET PO SCH ×2 (17:19→17:21)
[2021-12-08] MEDS: Furosemide 20 MG TABLET PO SCH ×3 (17:19→17:47)
[2021-12-08] MEDS: METOPROLOL TARTRATE 12.5 MG PO SCH (17:20)
[2021-12-08] MEDS: *HR* Amiodarone 200 MG TABLET PO SCH (17:21)
[2021-12-08] MEDS: Aspirin Enteric Coated 81 MG Tablet PO SCH (17:21)
[2021-12-08] MEDS: Cholecalciferol (D-3) 1,000 UNIT (25MCG) TABLET PO SCH (17:21)
[2021-12-08] MEDS: Melatonin 3 MG TABLET PO SCH (21:57)
[2021-12-08] MEDS: Cefdinir 300 MG CAPSULE PO SCH (21:57)
[2021-12-09 07:37] LABS: Basophils % 0.7 %; Eosinophils # 0.2 K/mcL (0.0-0.6); Eosinophils % 2.8 %; Hematocrit 35.1 % (35.3-44.9); Hemoglobin 10.8 g/dL (11.5-15.4); Immature Granulocytes % 0.4 % (0-4); Lymphocytes # 1.2 K/mcL (0.6-4.6); Mean Corpuscular HGB Conc 30.8 g/dL (31.6-35.5); Mean Corpuscular Hemoglobin 28.1 pg (28.0-33.3); Mean Corpuscular Volume 91.2 fL (83.0-100.0); Mean Platelet Volume 12.7 fL (9.4-12.4); Monocytes # 0.4 K/mcL (0.0-1.3); Monocytes % 8.2 %; Neutrophils # 3.5 K/mcL (1.6-8.9); Platelet Count 124 K/mcL (140-400); Red Blood Count 3.85 M/mcL (3.82-4.97); Segmented Neutrophils % 64.9 %; White Blood Count 5.4 K/mcL (4.3-11.1)
[2021-12-09 08:04] LABS: Calcium 8.2 mg/dL (8.6-10.3); Potassium 4.9 mEq/L (3.5-5.1)
[2021-12-09] MEDS: Cholecalciferol (D-3) 1,000 UNIT (25MCG) TABLET PO SCH (08:44)
[2021-12-09] MEDS: Aspirin Enteric Coated 81 MG Tablet PO SCH (08:45)
[2021-12-09] MEDS: Furosemide 20 MG TABLET PO SCH ×2 (08:45→16:35)
[2021-12-09] MEDS: *HR* Amiodarone 200 MG TABLET PO SCH (08:45)
[2021-12-09] MEDS: *HR* Glimepiride 2 MG TABLET PO SCH (08:45)
[2021-12-09] MEDS: Multivit/Ca/Min/Fe/FA 1 TAB TABLET PO SCH (08:45)
[2021-12-09] MEDS: lisinopriL 5 MG TABLET PO SCH (08:45)
[2021-12-09] MEDS: Ascorbic Acid 500 MG TABLET PO SCH (08:45)
[2021-12-09] MEDS: Apixaban 2.5 MG TABLET PO SCH ×2 (08:45→20:47)
[2021-12-09] MEDS: Melatonin 3 MG TABLET PO SCH (20:47)
[2021-12-09] MEDS: Cefdinir 300 MG CAPSULE PO SCH (20:47)
[2021-12-09] MEDS: polyethylene glycoL 3350 17 GM POWD.PACK PO PRN (20:48)
[2021-12-10] MEDS: Ascorbic Acid 500 MG TABLET PO SCH (09:18)
[2021-12-10] MEDS: lisinopriL 5 MG TABLET PO SCH (09:18)
[2021-12-10] MEDS: Aspirin Enteric Coated 81 MG Tablet PO SCH (09:18)
[2021-12-10] MEDS: *HR* Amiodarone 200 MG TABLET PO SCH (09:18)
[2021-12-10] MEDS: Furosemide 20 MG TABLET PO SCH ×2 (09:18→17:07)
[2021-12-10] MEDS: Multivit/Ca/Min/Fe/FA 1 TAB TABLET PO SCH (09:18)
[2021-12-10] MEDS: *HR* Glimepiride 2 MG TABLET PO SCH (09:18)
[2021-12-10] MEDS: Cholecalciferol (D-3) 1,000 UNIT (25MCG) TABLET PO SCH (09:18)
[2021-12-10] MEDS: Apixaban 2.5 MG TABLET PO SCH ×2 (09:19→22:03)
[2021-12-10] MEDS: carvediloL 6.25 MG TABLET PO SCH (17:07)
[2021-12-10] MEDS: Melatonin 3 MG TABLET PO SCH (22:03)
[2021-12-10] MEDS: Cefdinir 300 MG CAPSULE PO SCH (22:03)
[2021-12-10] MEDS: Sennosides/Docusate Sodium TABLET PO PRN (22:08)
[2021-12-11] MEDS: Acetaminophen 325 MG TABLET PO PRN (03:32)
[2021-12-11] MEDS: *HR* Glimepiride 2 MG TABLET PO SCH (10:29)
[2021-12-11] MEDS: Cholecalciferol (D-3) 1,000 UNIT (25MCG) TABLET PO SCH (10:29)
[2021-12-11] MEDS: *HR* Amiodarone 200 MG TABLET PO SCH (10:29)
[2021-12-11] MEDS: Furosemide 20 MG TABLET PO SCH ×2 (10:30→16:00)
[2021-12-11] MEDS: Apixaban 2.5 MG TABLET PO SCH ×2 (10:30→21:22)
[2021-12-11] MEDS: lisinopriL 5 MG TABLET PO SCH (10:30)
[2021-12-11] MEDS: Aspirin Enteric Coated 81 MG Tablet PO SCH (10:30)
[2021-12-11] MEDS: Multivit/Ca/Min/Fe/FA 1 TAB TABLET PO SCH (10:30)
[2021-12-11] MEDS: Ascorbic Acid 500 MG TABLET PO SCH (10:30)
[2021-12-11] MEDS: carvediloL 6.25 MG TABLET PO SCH ×2 (10:30→16:00)
[2021-12-11] MEDS: Melatonin 3 MG TABLET PO SCH (21:22)
[2021-12-12] MEDS: Acetaminophen 325 MG TABLET PO PRN ×2 (00:43→22:22)
[2021-12-12] MEDS ORDERED: *HR* Dextrose 50 % in Water (Syg) 50 ML SYRINGE IVP PRN (08:27)
[2021-12-12] MEDS ORDERED: D5% in Water 1,000 ML IVC PRN (08:27)
[2021-12-12] MEDS ORDERED: Dextrose Gel 15 GM/37.5 ML TUBE PO PRN ×2 (08:27)
[2021-12-12] MEDS: Multivit/Ca/Min/Fe/FA 1 TAB TABLET PO SCH (09:34)
[2021-12-12] MEDS: Cholecalciferol (D-3) 1,000 UNIT (25MCG) TABLET PO SCH (09:34)
[2021-12-12] MEDS: Aspirin Enteric Coated 81 MG Tablet PO SCH (09:34)
[2021-12-12] MEDS: lisinopriL 5 MG TABLET PO SCH (09:34)
[2021-12-12] MEDS: Apixaban 2.5 MG TABLET PO SCH ×2 (09:34→22:23)
[2021-12-12] MEDS: *HR* Amiodarone 200 MG TABLET PO SCH (09:34)
[2021-12-12] MEDS: Ascorbic Acid 500 MG TABLET PO SCH (09:34)
[2021-12-12] MEDS: *HR* Glimepiride 2 MG TABLET PO SCH (09:35)
[2021-12-12] MEDS: Furosemide 20 MG TABLET PO SCH ×2 (09:35→17:06)
[2021-12-12] MEDS: Insulin LISPRO 300 UNITS/3 ML VIAL SUBQ SCH ×3 (12:41→22:23)
[2021-12-12] MEDS: carvediloL 6.25 MG TABLET PO SCH (17:06)
[2021-12-12] MEDS: Melatonin 3 MG TABLET PO SCH (22:23)
[2021-12-13] MEDS: Insulin LISPRO 300 UNITS/3 ML VIAL SUBQ SCH ×4 (07:25→21:07)
[2021-12-13] MEDS: Aspirin Enteric Coated 81 MG Tablet PO SCH (09:22)
[2021-12-13] MEDS: Multivit/Ca/Min/Fe/FA 1 TAB TABLET PO SCH (09:22)
[2021-12-13] MEDS: Furosemide 20 MG TABLET PO SCH ×2 (09:22→17:09)
[2021-12-13] MEDS: *HR* Amiodarone 200 MG TABLET PO SCH (09:22)
[2021-12-13] MEDS: Cholecalciferol (D-3) 1,000 UNIT (25MCG) TABLET PO SCH (09:23)
[2021-12-13] MEDS: Apixaban 2.5 MG TABLET PO SCH ×2 (09:23→21:07)
[2021-12-13] MEDS: lisinopriL 5 MG TABLET PO SCH (09:23)
[2021-12-13] MEDS: carvediloL 6.25 MG TABLET PO SCH ×3 (09:24→22:41)
[2021-12-13] MEDS: Ascorbic Acid 500 MG TABLET PO SCH (09:25)
[2021-12-13] MEDS: *HR* Glimepiride 2 MG TABLET PO SCH (09:25)
[2021-12-13] MEDS: Sennosides/Docusate Sodium TABLET PO PRN (21:07)
[2021-12-13] MEDS: Melatonin 3 MG TABLET PO SCH (21:07)
[2021-12-14] MEDS: Insulin LISPRO 300 UNITS/3 ML VIAL SUBQ SCH ×4 (07:28→21:42)
[2021-12-14] MEDS: carvediloL 6.25 MG TABLET PO SCH ×2 (10:33→16:41)
[2021-12-14] MEDS: Apixaban 2.5 MG TABLET PO SCH ×2 (10:33→21:37)
[2021-12-14] MEDS: Furosemide 20 MG TABLET PO SCH ×2 (10:34→16:41)
[2021-12-14] MEDS: Multivit/Ca/Min/Fe/FA 1 TAB TABLET PO SCH (10:34)
[2021-12-14] MEDS: Ascorbic Acid 500 MG TABLET PO SCH (10:34)
[2021-12-14] MEDS: Aspirin Enteric Coated 81 MG Tablet PO SCH (10:34)
[2021-12-14] MEDS: *HR* Amiodarone 200 MG TABLET PO SCH (10:34)
[2021-12-14] MEDS: Cholecalciferol (D-3) 1,000 UNIT (25MCG) TABLET PO SCH (10:35)
[2021-12-14] MEDS: lisinopriL 5 MG TABLET PO SCH (10:35)
[2021-12-14] MEDS: *HR* Glimepiride 2 MG TABLET PO SCH (10:35)
[2021-12-14] MEDS: Melatonin 3 MG TABLET PO SCH (21:36)
[2021-12-14] MEDS: Acetaminophen 325 MG TABLET PO PRN (23:36)
[2021-12-15] MEDS: Furosemide 20 MG TABLET PO SCH ×2 (07:57→17:17)
[2021-12-15] MEDS: Multivit/Ca/Min/Fe/FA 1 TAB TABLET PO SCH (07:57)
[2021-12-15] MEDS: Apixaban 2.5 MG TABLET PO SCH ×2 (07:57→20:56)
[2021-12-15] MEDS: Cholecalciferol (D-3) 1,000 UNIT (25MCG) TABLET PO SCH (07:57)
[2021-12-15] MEDS: *HR* Amiodarone 200 MG TABLET PO SCH (07:57)
[2021-12-15] MEDS: *HR* Glimepiride 2 MG TABLET PO SCH (07:57)
[2021-12-15] MEDS: Aspirin Enteric Coated 81 MG Tablet PO SCH (07:57)
[2021-12-15] MEDS: Insulin LISPRO 300 UNITS/3 ML VIAL SUBQ SCH ×4 (07:58→22:02)
[2021-12-15] MEDS: lisinopriL 5 MG TABLET PO SCH (07:58)
[2021-12-15] MEDS: carvediloL 6.25 MG TABLET PO SCH ×2 (07:58→17:17)
[2021-12-15] MEDS: Ascorbic Acid 500 MG TABLET PO SCH (07:58)
[2021-12-15] MEDS: Sennosides/Docusate Sodium TABLET PO PRN (20:55)
[2021-12-15] MEDS: Acetaminophen 325 MG TABLET PO PRN (20:55)
[2021-12-15] MEDS: Melatonin 3 MG TABLET PO SCH (20:56)
[2021-12-16 07:50] LABS: Hematocrit 38.2 % (35.3-44.9); Hemoglobin 11.9 g/dL (11.5-15.4); Mean Corpuscular HGB Conc 31.2 g/dL (31.6-35.5); Mean Corpuscular Hemoglobin 28.2 pg (28.0-33.3); Mean Corpuscular Volume 90.5 fL (83.0-100.0); Mean Platelet Volume 13.5 fL (9.4-12.4); Platelet Count 144 K/mcL (140-400); Red Blood Count 4.22 M/mcL (3.82-4.97); White Blood Count 7.1 K/mcL (4.3-11.1)
[2021-12-16 08:11] LABS: Calcium 8.6 mg/dL (8.6-10.3); Potassium 4.4 mEq/L (3.5-5.1)
[2021-12-16] MEDS: Aspirin Enteric Coated 81 MG Tablet PO SCH (10:25)
[2021-12-16] MEDS: *HR* Amiodarone 200 MG TABLET PO SCH (10:25)
[2021-12-16] MEDS: *HR* Glimepiride 2 MG TABLET PO SCH (10:25)
[2021-12-16] MEDS: Furosemide 20 MG TABLET PO SCH ×2 (10:26→18:50)
[2021-12-16] MEDS: Ascorbic Acid 500 MG TABLET PO SCH (10:27)
[2021-12-16] MEDS: lisinopriL 5 MG TABLET PO SCH (10:27)
[2021-12-16] MEDS: Multivit/Ca/Min/Fe/FA 1 TAB TABLET PO SCH (10:27)
[2021-12-16] MEDS: Apixaban 2.5 MG TABLET PO SCH ×2 (10:27→20:29)
[2021-12-16] MEDS: Cholecalciferol (D-3) 1,000 UNIT (25MCG) TABLET PO SCH (10:27)
[2021-12-16] MEDS: Insulin LISPRO 300 UNITS/3 ML VIAL SUBQ SCH ×4 (10:33→20:31)
[2021-12-16] MEDS: carvediloL 6.25 MG TABLET PO SCH ×2 (10:34→18:50)
[2021-12-16] MEDS: Acetaminophen 325 MG TABLET PO PRN (20:29)
[2021-12-16] MEDS: Sennosides/Docusate Sodium TABLET PO PRN (20:30)
[2021-12-16] MEDS: Melatonin 3 MG TABLET PO SCH (20:35)
[2021-12-17] MEDS: Apixaban 2.5 MG TABLET PO SCH ×2 (08:55→19:49)
[2021-12-17] MEDS: Furosemide 20 MG TABLET PO SCH ×2 (08:56→17:32)
[2021-12-17] MEDS: Ascorbic Acid 500 MG TABLET PO SCH (08:56)
[2021-12-17] MEDS: Aspirin Enteric Coated 81 MG Tablet PO SCH (08:56)
[2021-12-17] MEDS: *HR* Amiodarone 200 MG TABLET PO SCH (08:57)
[2021-12-17] MEDS: lisinopriL 5 MG TABLET PO SCH (08:57)
[2021-12-17] MEDS: *HR* Glimepiride 2 MG TABLET PO SCH (08:57)
[2021-12-17] MEDS: carvediloL 6.25 MG TABLET PO SCH ×2 (08:59→17:31)
[2021-12-17] MEDS: Multivit/Ca/Min/Fe/FA 1 TAB TABLET PO SCH (08:59)
[2021-12-17] MEDS: Cholecalciferol (D-3) 1,000 UNIT (25MCG) TABLET PO SCH (08:59)
[2021-12-17] MEDS: Insulin LISPRO 300 UNITS/3 ML VIAL SUBQ SCH ×4 (09:00→21:41)
[2021-12-17] MEDS ORDERED: Moderna Covid-19 Vaccine 100MCG/0.5mL IM ONE (15:52)
[2021-12-17] MEDS: Melatonin 3 MG TABLET PO SCH (19:49)
[2021-12-18] MEDS: carvediloL 6.25 MG TABLET PO SCH ×2 (09:06→16:54)
[2021-12-18] MEDS: Insulin LISPRO 300 UNITS/3 ML VIAL SUBQ SCH ×4 (09:06→21:07)
[2021-12-18] MEDS: *HR* Glimepiride 2 MG TABLET PO SCH (09:06)
[2021-12-18] MEDS: *HR* Amiodarone 200 MG TABLET PO SCH (09:07)
[2021-12-18] MEDS: Cholecalciferol (D-3) 1,000 UNIT (25MCG) TABLET PO SCH (09:07)
[2021-12-18] MEDS: Ascorbic Acid 500 MG TABLET PO SCH (09:07)
[2021-12-18] MEDS: Multivit/Ca/Min/Fe/FA 1 TAB TABLET PO SCH (09:07)
[2021-12-18] MEDS: Apixaban 2.5 MG TABLET PO SCH ×2 (09:07→21:13)
[2021-12-18] MEDS: Furosemide 20 MG TABLET PO SCH ×2 (09:07→16:54)
[2021-12-18] MEDS: lisinopriL 5 MG TABLET PO SCH (09:07)
[2021-12-18] MEDS: Aspirin Enteric Coated 81 MG Tablet PO SCH (09:08)
[2021-12-18] MEDS: Sennosides/Docusate Sodium TABLET PO PRN (21:13)
[2021-12-18] MEDS: Melatonin 3 MG TABLET PO SCH (21:14)
[2021-12-18] MEDS: Acetaminophen 325 MG TABLET PO PRN (21:16)
[2021-12-19] MEDS: Acetaminophen 325 MG TABLET PO PRN (03:57)
[2021-12-19 07:27] VITALS: BP 116/65; PULSE 56; RESP 19; TEMP 97.7; O2SAT 92
[2021-12-19 07:33] LABS: Basophils # 0.1 K/mcL (0.0-0.2); Basophils % 1.1 %; Eosinophils # 0.1 K/mcL (0.0-0.6); Eosinophils % 2.6 %; Hemoglobin 10.1 g/dL (11.5-15.4); Immature Granulocytes % 0.4 % (0-4); Lymphocytes # 1.3 K/mcL (0.6-4.6); Lymphocytes % 24.2 %; Mean Corpuscular HGB Conc 31.6 g/dL (31.6-35.5); Mean Corpuscular Hemoglobin 28.5 pg (28.0-33.3); Mean Corpuscular Volume 90.4 fL (83.0-100.0); Mean Platelet Volume 12.9 fL (9.4-12.4); Monocytes # 0.5 K/mcL (0.0-1.3); Monocytes % 8.3 %; Neutrophils # 3.4 K/mcL (1.6-8.9); Platelet Count 126 K/mcL (140-400); Red Blood Count 3.54 M/mcL (3.82-4.97); Red Cell Distribution Width 15.7 % (11.5-14.5); Segmented Neutrophils % 63.4 %; White Blood Count 5.4 K/mcL (4.3-11.1)
[2021-12-19 08:08] LABS: Calcium 8.1 mg/dL (8.6-10.3); Potassium 4.3 mEq/L (3.5-5.1)
[2021-12-19] MEDS: Apixaban 2.5 MG TABLET PO SCH (08:42)
[2021-12-19] MEDS: Insulin LISPRO 300 UNITS/3 ML VIAL SUBQ SCH ×3 (08:42→17:19)
[2021-12-19] MEDS: *HR* Glimepiride 2 MG TABLET PO SCH (08:43)
[2021-12-19] MEDS: Furosemide 20 MG TABLET PO SCH ×2 (08:43→17:18)
[2021-12-19] MEDS: carvediloL 6.25 MG TABLET PO SCH ×2 (08:43→17:18)
[2021-12-19] MEDS: Cholecalciferol (D-3) 1,000 UNIT (25MCG) TABLET PO SCH (08:43)
[2021-12-19] MEDS: lisinopriL 5 MG TABLET PO SCH (08:43)
[2021-12-19] MEDS: Ascorbic Acid 500 MG TABLET PO SCH (08:43)
[2021-12-19] MEDS: *HR* Amiodarone 200 MG TABLET PO SCH (08:43)
[2021-12-19] MEDS: Multivit/Ca/Min/Fe/FA 1 TAB TABLET PO SCH (08:43)
[2021-12-19] MEDS: Aspirin Enteric Coated 81 MG Tablet PO SCH (08:43)
[2021-12-19] MEDS: polyethylene glycoL 3350 17 GM POWD.PACK PO PRN (08:50)
[2021-12-19 17:20] LABS: Influenza A PCR Negative (Negative); Influenza B PCR Negative (Negative); Resp. Syncytial Virus PCR Negative (Negative)
[2021-12-19 17:21] LABS: SARS-CoV-2 by PCR (In House) Negative (Negative)
== END 2021-12-19 19:50 | DRG 690 ==
LOC: INPPIK 12-08 15:54
PROVIDERS: ADMIT Internal Medicine; ATTEND Internal Medicine